=== PATIENT | female | born 1970 ===

== ENCOUNTER → 2022-06-15 | Outpatient (REF) | payer BC ==
[2022-06-15 18:52] LABS: MALB URINE SIEMENS < 3.0 MG/DL; MAU/CREAT RATIO 18.7 MCG/MG (0.0-30.0)
== END ==
LOC: M LAB REF 17:03
PROVIDERS: ATTEND Nurse Practitioner Family
DX: E11.65 Type 2 diabetes mellitus with hyperglycemia (principal)